=== PATIENT | male | born 1955 | race Caucasian/White ===

== ENCOUNTER 2016-11-12 14:05 | Day surgery (SDC) | payer BC ==
[~2016-11-12] VITALS: Ht 185.4 cm; Wt 122.6 kg
[2016-11-12 14:13] VITALS: BP 147/83; PULSE 66; TEMP 98
[2016-11-12] MEDS ORDERED: HCTZ 25MG TAB25 MG PO (14:29)
[2016-11-12] MEDS ORDERED: PRINIVIL40 MG PO (14:30)
[2016-11-12] MEDS ORDERED: LIPITOR 10MG10 MG PO (14:30)
[2016-11-12 17:11] VITALS: BP 155/88; PULSE 68
[2016-11-12 17:26] VITALS: BP 152/94; PULSE 73
[2016-11-12 17:41] VITALS: BP 153/87; PULSE 69
[2016-11-12 17:56] VITALS: BP 146/84; PULSE 71
[2016-11-12 18:24] VITALS: BP 153/94; PULSE 77; TEMP 98.7
== END 2016-11-12 18:35 | disposition left against medical advice (07) ==
LOC: SDCO 14:05 → SURG 14:05 → SDCO 18:35
DX: N20.1 Calculus of ureter (principal); E78.5 Hyperlipidemia, unspecified; E78.00 Pure hypercholesterolemia, unspecified; I10 Essential (primary) hypertension; Z87.891 Personal history of nicotine dependence; Z80.9 Family history of malignant neoplasm, unspecified
CPT/HCPCS: OP; C1769; J0690; J1100; J1940; J2405; J2704; J3010; Q9967

== ENCOUNTER → 2017-03-13 | Outpatient (REF) ==
[~2017-03-13] MED LIST: HCTZ 25MG TAB25 MG PO; LIPITOR 10MG10 MG PO; PRINIVIL40 MG PO
== END ==
LOC: WSOH 09:58
DX: Z01.89 Encounter for other specified special examinations (principal)
CPT/HCPCS: G0463